=== PATIENT | female | born 1985 ===

== ENCOUNTER 2021-01-18 12:59 | Outpatient (CLI) | payer BC ==
[2021-01-19 01:27] LABS: SARS-CoV-2 PCR by NAA Not Detected (NotDetected)
== END 2021-01-18 13:00 | disposition home or self-care (01) ==
LOC: CSHLAB 12:59
PROVIDERS: ATTEND Obstetrics & Gynecology
DX: Z20.822 Contact with and (suspected) exposure to COVID-19 (principal)
CPT/HCPCS: 87635; U0003; U0005

== ENCOUNTER 2021-01-23 06:11 | Inpatient (IN) | payer BC ==
[2021-01-23] MEDS ORDERED: Promethazine HCl 25 MG/ML VIAL IM PRN ×2 (06:14→09:10)
[2021-01-23] MEDS ORDERED: Bicitra 30 ML UDCUP PO PRN (06:14)
[2021-01-23] MEDS ORDERED: Lactated Ringer's 1,000 ML IV SCH (06:14)
[2021-01-23] MEDS ORDERED: Famotidine/PF 20 mg/2ml Vial SLOW IVP PRN (06:14)
[2021-01-23] MEDS ORDERED: hydrALAZINE 20 MG/ML VIAL SLOW IVP PRN ×2 (06:14→09:14)
[2021-01-23] MEDS ORDERED: Ondansetron PF 4 MG/2 ML Vial IVP PRN ×3 (06:14→09:14)
[2021-01-23] MEDS ORDERED: CEFAZOLIN 2 GM in Premix Bag 1 BAG IVPB SCH (06:14)
[2021-01-23 07:00] VITALS: BMI 30.4
[2021-01-23 07:04] LABS: Hemoglobin 13.7 g/dL (12.0-15.5); Mean Corpuscular HGB CONC 32.5 g/dL (32.0-36.0); Mean Corpuscular Hemoglobin 28.5 pg (27.0-33.0); Mean Corpuscular Volume 87.7 fl (81.6-98.3); Mean Platelet Volume 10.1 fl (7.4-10.4); Platelet Count 133 10x3/uL (150-450); RBC Distribution Width 18.6 % (11.5-14.5); White Blood Cell (WBC) Count 8.1 10x3/uL (3.5-10.5)
[2021-01-23] MEDS ORDERED: Dexamethasone 4 mg/ml Vial ONE (07:05)
[2021-01-23] MEDS ORDERED: Oxytocin 10 UNITS/ML VIAL ONE (07:05)
[2021-01-23] MEDS ORDERED: Morphine PF 10 MG/10 ML VIAL ONE (07:05)
[2021-01-23] MEDS ORDERED: Ketorolac Tromethamine 30 MG/ML VIAL ONE (07:05)
[2021-01-23] MEDS ORDERED: PHENYLEPHRINE-NS 100 MCG/ML 10 ML SYRINGE ONE (07:05)
[2021-01-23] MEDS ORDERED: Ondansetron PF 4 MG/2 ML Vial ONE (07:05)
[2021-01-23 07:40] LABS: Hep B Surf Ag Non-Reactive S/CO (NonReactive); Syphilis Antibody Nonreactive (Nonreactive); Syphilis Antibody Index 0.03 S/CO (<1.00 Non-Reactive)
[2021-01-23 07:48] LABS: HBSAg Index 0.15 S/CO (0-0.99)
[2021-01-23] MEDS ORDERED: PROPOFOL 40 ML ONE (08:08)
[2021-01-23] MEDS ORDERED: diphenhydrAMINE 50 MG/ML VIAL IVP PRN (09:10)
[2021-01-23] MEDS ORDERED: Eucerin (Mineral Oil/Petrolatum,White) 30 gm Jar TOP PRN (09:10)
[2021-01-23] MEDS ORDERED: Ketorolac Tromethamine 30 MG/ML VIAL IVP PRN (09:10)
[2021-01-23] MEDS ORDERED: Naloxone HCl 0.4 mg/ml Vial IV PRN (09:10)
[2021-01-23] MEDS ORDERED: Naloxone HCl 0.4 mg/ml Vial IVP PRN ×2 (09:10)
[2021-01-23] MEDS ORDERED: Promethazine HCl 25 MG SUPP PR PRN (09:10)
[2021-01-23] MEDS ORDERED: Zolpidem Tartrate 5 MG TAB PO PRN (09:14)
[2021-01-23] MEDS ORDERED: diphenhydrAMINE 25 MG CAP PO PRN (09:14)
[2021-01-23] MEDS ORDERED: Lanolin Ointment 7 GM TUBE TOP PRN (09:14)
[2021-01-23] MEDS ORDERED: Bisacodyl 10 MG SUPP PR PRN (09:14)
[2021-01-23] MEDS ORDERED: Adacel (T-DAP) 0.5 ML SYRINGE IM ONE (09:14)
[2021-01-23] MEDS ORDERED: Meperidine HCl/PF 25 MG/ML VIAL IM PRN ×2 (09:14→19:00)
[2021-01-23] MEDS ORDERED: HYDROcodone/Acetaminophen 5/325 mg Tablet PO PRN ×2 (09:14)
[2021-01-23] MEDS ORDERED: Misoprostol 200 MCG TAB PR PRN (09:14)
[2021-01-23] MEDS ORDERED: Acetaminophen 325 MG TAB PO PRN (09:14)
[2021-01-23] MEDS ORDERED: Simethicone Chewable 80 MG TAB PO PRN (09:14)
[2021-01-23] MEDS ORDERED: Communication Order-Pharmacy FS SCH (09:15)
[2021-01-23] MEDS ORDERED: NS w/ Oxytocin 30 units 500 ML ONE (09:22)
[2021-01-23] MEDS: Misoprostol 200 MCG TAB ONE (09:26)
[2021-01-23] MEDS ORDERED: Methylergonovine 0.2 MG/ML VIAL ONE (09:36)
[2021-01-23] MEDS ORDERED: NS w/ Oxytocin 30 units 500 ML IV SCH (09:45)
[2021-01-23] MEDS ORDERED: Ibuprofen 800 MG TAB PO SCH (14:00)
[2021-01-23] MEDS: Ketorolac Tromethamine 30 MG/ML VIAL IVP PRN (16:53)
[2021-01-23] MEDS: Docusate Calcium (SURFAK) 240 MG CAP PO SCH (19:58)
[2021-01-23] MEDS: Ferrous Sulfate 325 MG TAB PO SCH (19:58)
[2021-01-23] MEDS: Lactated Ringer's 1,000 ML IV SCH (21:10)
[2021-01-24] MEDS: HYDROcodone/Acetaminophen 5/325 mg Tablet PO PRN ×4 (00:44→21:40)
[2021-01-24] MEDS: Ketorolac Tromethamine 30 MG/ML VIAL IVP PRN (00:46)
[2021-01-24 07:51] LABS: Hemoglobin 9.4 g/dL (12.0-15.5); Mean Corpuscular HGB CONC 32.6 g/dL (32.0-36.0); Mean Corpuscular Hemoglobin 28.5 pg (27.0-33.0); Mean Corpuscular Volume 87.3 fl (81.6-98.3); Mean Platelet Volume 11.3 fl (7.4-10.4); Platelet Count 113 10x3/uL (150-450); RBC Distribution Width 18.3 % (11.5-14.5); White Blood Cell (WBC) Count 18.8 10x3/uL (3.5-10.5)
[2021-01-24] MEDS: Lactated Ringer's 1,000 ML IV SCH ×3 (08:44→17:09)
[2021-01-24] MEDS: Misoprostol 200 MCG TAB ONE (08:45)
[2021-01-24] MEDS: Prenatal Vitamin 1 TAB PO SCH (08:47)
[2021-01-24] MEDS: Docusate Calcium (SURFAK) 240 MG CAP PO SCH ×2 (08:47→21:38)
[2021-01-24] MEDS: Ferrous Sulfate 325 MG TAB PO SCH ×2 (08:47→21:38)
[2021-01-24] MEDS: Ibuprofen 800 MG TAB PO SCH ×2 (13:55→21:38)
[2021-01-25] MEDS: HYDROcodone/Acetaminophen 5/325 mg Tablet PO PRN ×2 (04:24→09:39)
[2021-01-25] MEDS: Ibuprofen 800 MG TAB PO SCH ×2 (06:38→12:49)
[2021-01-25 07:51] VITALS: BP 129/78; TEMP 98
[2021-01-25] MEDS: Prenatal Vitamin 1 TAB PO SCH ×2 (09:06→09:38)
[2021-01-25] MEDS: Docusate Calcium (SURFAK) 240 MG CAP PO SCH ×3 (09:06→12:53)
[2021-01-25] MEDS: Ferrous Sulfate 325 MG TAB PO SCH ×2 (09:06→09:38)
[2021-01-25] MEDS: Lactated Ringer's 1,000 ML IV SCH ×2 (09:06→09:33)
== END 2021-01-25 12:45 | disposition home or self-care (01) | DRG 788 ==
LOC: CSHLD 06:11 → CSHPP 12:35 → EDSTATUS 01-25 17:46
PROVIDERS: ADMIT Obstetrics & Gynecology; ATTEND Obstetrics & Gynecology
PROC: 10D00Z1 Extraction of Products of Conception, Low, Open Approach (ICD-10-PCS; principal; 2021-01-23)
DX: O30.043 Twin pregnancy, dichorionic/diamniotic, third trimester (principal); Z20.822 Contact with and (suspected) exposure to COVID-19; O32.1XX1 Maternal care for breech presentation, fetus 1; O99.02 Anemia complicating childbirth; D64.9 Anemia, unspecified; O32.1XX2 Maternal care for breech presentation, fetus 2; Z37.2 Twins, both liveborn; Z3A.38 38 weeks gestation of pregnancy
CPT/HCPCS: 36415; 51702; 85027; 86780; 86850; 86900; 86901; 87340; J0690; J1100; J1885; J2274; J2405; J2704